=== PATIENT | male | born 1975 | race Caucasian/White ===

== ENCOUNTER 2020-08-22 23:46 | Emergency (ER) | payer BC ==
[~2020-08-22] VITALS: Ht 167.6 cm; Wt 118.2 kg
[2020-08-23] MEDS ORDERED: NITROGLYCERIN OINT 1 GM PACKET. TP ONE (00:45)
[2020-08-23] MEDS ORDERED: IV RINGERS SOLUTION,LACTATED 1,000 ML IV SCH (00:45)
[2020-08-23] MEDS ORDERED: ENOXAPARIN ** NOTE DOSE ** SYRINGE SQ ONE (00:45)
[2020-08-23] MEDS ORDERED: ASPIRIN CHEWABLE 81 MG TABLET. PO ONE ×2 (00:45→01:00)
[2020-08-23 00:54] LABS: BASO # 0.1 x10^3/uL (0.0-0.2); BASO % 1 % (0-3); EOS # 0.2 x10^3/uL (0.0-0.7); EOS % 2 % (0-3); HEMATOCRIT 47.9 % (39.0-53.0); HEMOGLOBIN 16.3 g/dL (13.0-17.5); LYMPH # 3.6 x10^3/uL (1.0-4.8); LYMPH % 39 % (24-48); MEAN CORPUSCULAR HEMOGLOBIN 30 pg (25-35); MEAN CORPUSCULAR HGB CONC 34 g/dL (31-37); MEAN CORPUSCULAR VOLUME 89 fL (79-100); MONO # 0.9 x10^3/uL (0.0-1.1); MONO % 10 % (0-9); NEUT # 4.5 x10^3uL (1.8-7.7); NEUT % 49 % (31-73); PLATELET COUNT 239 x10^3/uL (140-400); RED BLOOD COUNT 5.37 x10^6/uL (4.30-5.70); RED CELL DISTRIBUTION WIDTH 13.8 % (11.5-14.5); WHITE BLOOD COUNT 9.3 x10^3/uL (4.0-11.0)
[2020-08-23] MEDS ORDERED: ASPIRIN CHEWABLE 81 MG TABLET. ONE (00:58)
--- NOTE | 2020-08-23 01:02 | RAD ---
INDICATION: Reason: cp / Spl. Instructions: / History: COMPARISON: March 2013 FINDINGS: Single view of chest obtained. Hypoexpanded exam without definite focal airspace consolidation. No gross osseous destructive lesion. Cardiac silhouette unremarkable. IMPRESSION: * No focal airspace consolidation or edema. Electronically signed by: Isidoro Perez MD (08/23/2020 1:00 AM) [id number]
--- NOTE | 2020-08-23 01:20 | EKG ---
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
[2020-08-23 01:38] LABS: ALBUMIN 4.4 g/dL (3.4-5.0); DIRECT BILIRUBIN 0.1 mg/dL (0.0-0.2); MAGNESIUM 2.1 mg/dL (1.8-2.4); TOTAL BILIRUBIN 0.4 mg/dL (0.2-1.0); TOTAL PROTEIN 7.3 g/dL (6.4-8.2)
[2020-08-23 01:56] LABS: BUN ISTAT 24 mg/dL (8-26); POTASSIUM ISTAT 3.4 mmol/L (3.5-5.0); SODIUM ISTAT 140 mmol/L (135-145)
[2020-08-23 01:57] LABS: GLUCOSE ISTAT 108 mg/dL (60-99)
[2020-08-23] MEDS ORDERED: IV RINGERS SOLUTION,LACTATED 1,000 ML IV ONE (02:00)
[2020-08-23] MEDS ORDERED: IOHEXOL 350 MG/ML 100 ML VIAL. IV ONE (02:15)
[2020-08-23] MEDS ORDERED: CONTRAST GIVEN. MC PRN (02:30)
--- NOTE | 2020-08-23 03:01 | PHYS DOC ---
Past History Past Medical History: Hypertension Additional Past Medical Histor: GOUT Past Surgical History: Other Additional Past Surgical Histo: LEFT HAND SX Additional Smoking Information: "I SMOKE CIGARS AND CHEW TOBACCO" Alcohol Use: Occasionally General Adult EDM: Chief Complaint: CHEST PAIN HPI: HPI: ".. Woke up with some chest discomfort.. here in center of my chest.. it is better now.. " " I just felt like I need to get checked out.." Patient is a 45 year old male who presents with above hx and complaints central chest pain. No radiation. Patient on arrival stated discomfort is pretty much resolved. Patient denies any trauma. Patient denies any specific ill contacts. Patient denies any history of prior cardiac problems. Patient does have a history of hypertension. Patient has been compliant with his hypertension meds. Patient does not know family history because he is adopted. Patient normally follows with [facility] or primary in [place]. No recent travel outside the [place] area. No changes in meds. Review of Systems: Review of Systems: Constitutional: Denies fever or chills Eyes: Denies change in visual acuity HENT: Denies nasal congestion or sore throat Respiratory: Denies cough or shortness of breath Cardiovascular: Complains of chest pain. GI: Denies abdominal pain, nausea, vomiting, bloody stools or diarrhea : Denies dysuria Musculoskeletal: Denies back pain or joint pain Integument: Denies rash Neurologic: Denies headache, focal weakness or sensory changes Endocrine: Denies polyuria or polydipsia Lymphatic: Denies swollen glands Psychiatric: Denies depression or anxiety Family History: Family History: Not available patient adopted Current Medications: Current Meds: Current Medications Medications (Trade) Dose Ordered Sig/Alyse Start Time Stop Time Status Last Admin Dose Admin Aspirin (Aspirin Chewable) 81 mg STK-MED ONCE 08/23/20 00:58 08/23/20 00:58 DC Enoxaparin Sodium (Lovenox 100mg Syringe) 100 mg 1X ONCE 08/23/20 00:45 08/23/20 00:46 DC 08/23/20 01:13 100 MG Info (Do NOT chart on this entry -- for MONITORING) 1 each PRN DAILY PRN 08/23/20 02:30 08/25/20 02:29 Iohexol (Omnipaque 350 Mg/ml) 100 ml 1X ONCE 08/23/20 02:15 08/23/20 02:19 DC Lactated Ringer's 1,000 ml @ 1,000 mls/hr 1X ONCE 08/23/20 02:00 08/23/20 02:59 DC Nitroglycerin (Nitro-Bid Oint) 1 inch 1X ONCE 08/23/20 00:45 08/23/20 00:46 DC 08/23/20 01:09 1 INCH Allergies: Allergies: Allergies Coded Allergies Type Severity Reaction Last Updated Verified No Known Drug Allergies 04/05/13 No Physical Exam: PE: Constitutional: Moderate acute distress, non-toxic appearance. [] HENT: Normocephalic, atraumatic, bilateral external ears normal, oropharynx moist, no oral exudates, nose normal. [] Eyes: PERRLA, EOMI, conjunctiva normal, no discharge. [] Neck: Normal range of motion, no tenderness, supple, no stridor. [] Cardiovascular:Heart rate regular rhythm, no murmur [] slightly to the left Lungs & Thorax: Bilateral breath sounds equal apex on auscultation [] Abdomen: Bowel sounds normal, soft, no tenderness, no masses, no pulsatile masses. Obese Skin: Warm, dry, no erythema, no rash. [] Back: No tenderness, no CVA tenderness. [] Extremities: No tenderness, no cyanosis, no clubbing, ROM intact, no edema. No cording appreciated Neurologic: Alert and oriented X 3, normal motor function, normal sensory function, no focal deficits noted. [] Psychologic: Affect anxious, judgement normal, mood normal. [] Current Patient Data: Labs: Laboratory Tests Test 08/22/20 23:20 08/22/20 23:50 08/23/20 00:01 Magnesium Level 2.1 mg/dL (1.8-2.4) Total Bilirubin 0.4 mg/dL (0.2-1.0) Direct Bilirubin 0.1 mg/dL (0.0-0.2) Aspartate Amino Transferase (AST) 33 U/L (15-37) Alanine Aminotransferase (ALT) 61 U/L (16-63) Alkaline Phosphatase 81 U/L (46-116) Creatine Kinase 84 U/L (39-308) FS-Nlm-A-Type Natriuretic Peptide 18 pg/mL (0-124) Total Protein 7.3 g/dL (6.4-8.2) Albumin 4.4 g/dL (3.4-5.0) Lipase 141 U/L (73-393) POC Hemoglobin gm/dL POC Hematocrit % POC Sodium 140 mmol/L (135-145) POC Potassium 3.4 mmol/L (3.5-5.0) L POC Chloride 101 mmol/L (98-110) POC Total CO2 27 mmol/L (23-32) Anion Gap 16 mmol/L (6-14) H POC Blood Urea Nitrogen 24 mg/dL (8-26) POC Creatinine 1.5 mg/dL (0.5-1.4) H Glucose Level 108 mg/dL (60-99) H POC Ionized Calcium (Kristopher) 1.22 mmol/L (1.13-1.32) White Blood Count 9.3 x10^3/uL (4.0-11.0) Red Blood Count 5.37 x10^6/uL (4.30-5.70) Hemoglobin 16.3 g/dL (13.0-17.5) Hematocrit 47.9 % (39.0-53.0) Mean Corpuscular Volume 89 fL (79-100) Mean Corpuscular Hemoglobin 30 pg (25-35) Mean Corpuscular Hemoglobin Concent 34 g/dL (31-37) Red Cell Distribution Width 13.8 % (11.5-14.5) Platelet Count 239 x10^3/uL (140-400) Neutrophils (%) (Auto) 49 % (31-73) Lymphocytes (%) (Auto) 39 % (24-48) Monocytes (%) (Auto) 10 % (0-9) H Eosinophils (%) (Auto) 2 % (0-3) Basophils (%) (Auto) 1 % (0-3) Neutrophils # (Auto) 4.5 x10^3uL (1.8-7.7) Lymphocytes # (Auto) 3.6 x10^3/uL (1.0-4.8) Monocytes # (Auto) 0.9 x10^3/uL (0.0-1.1) Eosinophils # (Auto) 0.2 x10^3/uL (0.0-0.7) Basophils # (Auto) 0.1 x10^3/uL (0.0-0.2) Prothrombin Time 9.5 SEC (9.4-11.4) Prothrombin Time INR 0.9 (0.9-1.1) Activated Partial Thromboplast Time 23 SEC (23-33) D-Dimer (Karley) 0.67 mg/L (0.00-0.50) H Troponin I Quantitative < 0.017 ng/mL (0-0.055) Vital Signs: Vital Signs Date Time Temp Pulse Resp B/P (MAP) Pulse Ox O2 Delivery O2 Flow Rate FiO2 08/23/20 01:51 81 22 133/76 (95) 95 Room Air 08/23/20 00:16 98.4 EKG: EKG: My interpretation EKG #1 shows a sinus rhythm that is tachycardic at 107 bpm initial EKG is at 2359 hrs. My interpretation EKG #2 shows a sinus rhythm at 78 bpm. No findings acute STEMI or contralateral changes. Time of EKG is 359 hours. [] Radiology/Procedures: Radiology/Procedures: [address] [address] IMAGING REPORT Signed PATIENT: MELISSA MARQUEZ ACCOUNT: [id number] : 1975 LOCATION: ER AGE: 45 SEX: M EXAM STATUS: REG ER ORD. PHYSICIAN: VALERIE BOURGEOIS MD REASON: cp, REDUCED DOSE, CREAT 1.5, GFR 55, OMNI 350, 75ml PROCEDURE: CT ANGIOGRAPHY CHEST INDICATION: Reason: cp, REDUCED DOSE, CREAT 1.5, GFR 55, OMNI 350, 75ml / Spl. Instructions: / History: COMPARISON: Chest x-ray from same day and chest CT from March 2013 TECHNIQUE: Axial CT images obtained through the chest. Intravenous contrast utilized. Angiogram 3D images processed per protocol. One or more of the following individualized dose reduction techniques were utilized for this examination: 1. Automated exposure control; 2. Adjustment of the mA and/or kV according to patient size; 3. Use of iterative reconstruction technique. FINDINGS: Hypoexpanded exam. Nodular opacity at the right lower lung measuring up to about 25 mm. There are some mild groundglass opacities with motion somewhat limiting exam. No pneumothorax. Liver is low density which can be seen with fatty infiltration. Degenerative changes of the spine. There is mild scoliotic curvature of the spine. No thoracic aortic aneurysm with portions of ascending thoracic aorta obscured by motion. No embolus in the main, right main or left main pulmonary artery. More peripheral pulmonary arteries are not well evaluated secondary to patient motion obscuring. Degenerative changes the spine with osteophyte formation. IMPRESSION: No embolus in the main, right main or left main pulmonary artery. Motion obscures the more peripheral vessels which are not well evaluated on this exam. Within the right lower lung posteriorly there is a nodular opacity identified. There is a vessel extending towards this structure that appears low density but there is too much motion within to reliably evaluate for embolus within the peripheral vessels within this region but a small peripheral pulmonary embolus is not excluded on this exam. Differential considerations would include in fectious or inflammatory nodule but would obtain a follow-up to ensure that this appropriately resolves to exclude any neoplastic cause. Electronically signed by: Rashad Amaro MD (08/23/2020 4:22 AM) [id number] DICTATED AND SIGNED BY: RASHAD AMARO MD DATE: 08/23/20 0409 CC: VALERIE BOURGEOIS MD; ANIBAL MCKEON ~MTH0 0 [][place] [address] IMAGING REPORT Signed PATIENT: MELISSA MARQUEZ ACCOUNT: [id number] : 1975 LOCATION: ER AGE: 45 SEX: M EXAM STATUS: REG ER ORD. PHYSICIAN: VALERIE BOURGEOIS MD REASON: cp PROCEDURE: PORTABLE CHEST 1V INDICATION: Reason: cp / Spl. Instructions: / History: COMPARISON: March 2013 FINDINGS: Single view of chest obtained. Hypoexpanded exam without definite focal airspace consolidation. No gross osseous destructive lesion. Cardiac silhouette unremarkable. IMPRESSION: * No focal airspace consolidation or edema. Electronically signed by: Rashad Amaro MD (08/23/2020 1:00 AM) [id number] DICTATED AND SIGNED BY: RASHAD AMARO MD DATE: 08/23/20 0059 CC: VALERIE BOURGEOIS MD; ANIBAL MCKEON ~MTH0 0 Heart Score: C/O Chest Pain: Yes HEART Score for Chest Pain: HEART Score for Chest Pain Response (Comments) Value History Slighlty/Non-Suspicious 0 ECG Normal 0 Age < 45 0 Risk Factors 1 or 2 Risk Factors 1 Troponin < Normal Limit 0 Total 1 Risk Factors: Risk Factors: DM, Current or recent (<one month) smoker, HTN, HLP, family history of CAD, obesity. Risk Scores: Score 0 - 3: 2.5% MACE over next 6 weeks - Discharge Home Score 4 - 6: 20.3% MACE over next 6 weeks - Admit for Clinical Observation Score 7 - 10: 72.7% MACE over next 6 weeks - Early Invasive Strategies Course & Med Decision Making: Course & Med Decision Making Pertinent Labs and Imaging studies reviewed. (See chart for details) Patient take a daily aspirin. Patient return if any concerns. Patient follow- up pending labs. Patient follow-up primary care. Patient get outpatient stress testing. Patient take Tylenol or Profen for pain. Patient strongly encouraged to stop all tobacco use. Impression: 1. Chest pain 2. Accelerated hypertension 3. Very mild elevation D-dimer 0.67 4. Mild hypokalemia 3.4 5. Mild renal insufficiency creatinine 1.5 [] Dragon Disclaimer: Dragon Disclaimer: This electronic medical record was generated, in whole or in part, using a voice recognition dictation system. Departure Departure: Referrals: ANIBAL MCKEON (PCP) Dragon Disclaimer This chart was dictated in whole or in part using Voice Recognition software in a busy, high-work load, and often noisy Emergency Department environment. It may contain unintended and wholly unrecognized errors or omissions. VALERIE BOURGEOIS MD Aug 23, 2020 03:01
[2020-08-23 03:05] LABS: BILIRUBIN,URINE NEG (NEG); CLARITY,URINE CLEAR; COLOR,URINE YELLOW; GLUCOSE,URINE NEG (NEG); NITRITE,URINE NEG (NEG); UROBILINOGEN,URINE 0.2 mg/dL (0.2 mg/dL)
[2020-08-23 03:06] LABS: BARBITURATES NEG (NEG); BENZODIAZEPINES NEG (NEG); CANNABINOIDS NEG (NEG); COCAINE NEG (NEG); METHADONE NEG (NEG); OPIATES NEG (NEG); PHENCYCLIDINE NEG (NEG)
[2020-08-23 03:09] LABS: BACTERIA,URINE 0 /HPF (0-FEW); RBC,URINE 0 /HPF (0-2); SQUAMOUS EPITHELIAL CELL,UR FEW /LPF; WBC,URINE 0 /HPF (0-4)
[2020-08-23 03:19] LABS: AMPHETAMINE/METHAMPHETAMINE NEG (NEG)
--- NOTE | 2020-08-23 04:12 | EKG ---
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
--- NOTE | 2020-08-23 04:24 | RAD ---
INDICATION: Reason: cp, REDUCED DOSE, CREAT 1.5, GFR 55, OMNI 350, 75ml / Spl. Instructions: / Histo ry: COMPARISON: Chest x-ray from same day and chest CT from March 2013 TECHNIQUE: Axial CT images obtained through the chest. Intravenous contrast utilized. Angiogram 3D images proce ssed per protocol. One or more of the following individualized dose reduction techniques were utilized for this examinat ion: 1. Automated exposure control; 2. Adjustment of the mA and/or kV according to patient size; 3 . Use of iterative reconstruction technique. FINDINGS: Hypoexpanded exam. Nodular opacity at the right lower lung measuring up to about 25 mm. There are some mild groundglass opacities with motion somewhat limiting exam. No pneumothorax. Liver is low density which can be seen with fatty infiltration. Degenerative changes of the spine. There is mild scoliotic curvature of the spine. No thoracic aortic aneurysm with portions of ascending thoracic aorta obscured by motion. No embolus in the main, right main or left main pulmonary artery. More peripheral pulmonary arteries are not well evaluated secondary to patient motion obscuring. Degenerative changes the spine with osteophyte formation. IMPRESSION: No embolus in the main, right main or left main pulmonary artery. Motion obscures the more peripheral vessels which are not well evaluated on this exam. Within the right lower lung posteriorly there is a nodular opacity identified. There is a vessel exte nding towards this structure that appears low density but there is too much motion within to reliably evaluate for embolus within the peripheral vessels within this region but a small peripheral pulmona ry embolus is not excluded on this exam. Differential considerations would include infectious or infl ammatory nodule but would obtain a follow-up to ensure that this appropriately resolves to exclude an y neoplastic cause. Electronically signed by: Isidoro Perez MD (08/23/2020 4:22 AM) [id number]
[2020-08-23 05:03] VITALS: BP 132/78
[2020-08-23 09:56] LABS: THYROID STIM HORMONE (TSH) 5.331 uIU/mL (0.358-3.740)
== END 2020-08-23 05:10 | disposition home or self-care (01) ==
LOC: ER 23:46
DX: R07.89 Other chest pain (principal); I10 Essential (primary) hypertension; E87.6 Hypokalemia; N28.9 Disorder of kidney and ureter, unspecified; R79.1 Abnormal coagulation profile
CPT/HCPCS: 36415; 71045; 71275; 80047; 80061; 80076; 80307; 81001; 82550; 83690; 83735; 83880; 84443; 84484; 85025; 85379; 85610; 85730; 93005; 96360; 96372; 99285; J1650; J7120; Q9967